=== PATIENT | male | born 2000 | race African-American/Black ===

== ENCOUNTER 2020-05-23 16:09 | Emergency (ER) | payer SELFPAY ==
[~2020-05-23] VITALS: Ht 180.3 cm; Wt 68.0 kg
[2020-05-23 16:47] VITALS: BP_SYST 120
[2020-05-23] MEDS ORDERED: AZITHROMYCIN 250 MG TABLET. PO ONE (17:15)
[2020-05-23] MEDS ORDERED: metroNIDAZOLE 500 MG TABLET PO ONE (17:15)
[2020-05-23] MEDS ORDERED: cefTRIAXone IM 250 MG VIAL IM ONE (17:15)
[2020-05-23 17:23] LABS: CLARITY,URINE HAZY; COLOR,URINE ORANGE
[2020-05-23 17:29] LABS: BACTERIA,URINE FEW /HPF (0-FEW); RBC,URINE OCC /HPF (0-2); WBC,URINE >40 /HPF (0-4)
--- NOTE | 2020-05-23 17:42 | PHYS DOC ---
Past Medical History Past Medical History: No Pertinent History Past Surgical History: No Surgical History Smoking Status: Never Smoker Alcohol Use: None General Adult EDM: Chief Complaint: SEXUALLY TRANSMITTED DISEASE HPI: HPI: Patient is a 19 year old male who presents with penile discharge for 3 days. Patient is concerned about STDs and would like to be tested and treated Review of Systems: Review of Systems: Constitutional: Denies fever or chills. [] GI: Denies abdominal pain, nausea, vomiting, bloody stools or diarrhea. [] : Reports penile discharge. Denies dysuria. [] Musculoskeletal: Denies back pain or joint pain. [] Integument: Denies rash. [] Neurologic: Denies headache, focal weakness or sensory changes. [] Psychiatric: Denies depression or anxiety. [] Heart Score: Risk Factors: Risk Factors: DM, Current or recent (<one month) smoker, HTN, HLP, family history of CAD, obesity. Risk Scores: Score 0 - 3: 2.5% MACE over next 6 weeks - Discharge Home Score 4 - 6: 20.3% MACE over next 6 weeks - Admit for Clinical Observation Score 7 - 10: 72.7% MACE over next 6 weeks - Early Invasive Strategies Current Medications: Current Medications Medications (Trade) Dose Ordered Sig/Antony Start Time Stop Time Status Last Admin Dose Admin Azithromycin (Zithromax) 1,000 mg 1X ONCE 05/23/20 17:15 05/23/20 17:23 DC Ceftriaxone Sodium (Rocephin Im) 250 mg 1X ONCE 05/23/20 17:15 05/23/20 17:23 DC Metronidazole (Flagyl) 2,000 mg 1X ONCE 05/23/20 17:15 05/23/20 17:23 DC Allergies: Allergies: Allergies Coded Allergies Type Severity Reaction Last Updated Verified No Known Drug Allergies 05/23/20 No Physical Exam: PE: Constitutional: Well developed, well nourished, no acute distress, non-toxic appearance. [] Abdomen: Bowel sounds normal, soft, no tenderness, no masses, no pulsatile masses. [] Skin: Warm, dry, no erythema, no rash. [] Back: No tenderness, no CVA tenderness. [] Extremities: No tenderness, no cyanosis, no clubbing, ROM intact, no edema. [] Neurologic: Alert and oriented X 3, normal motor function, normal sensory function, no focal deficits noted. [] Psychologic: Affect normal, judgement normal, mood normal. [] Current Patient Data: Labs: Laboratory Tests Test 05/23/20 17:04 Urine Collection Type Unknown Urine Color [place] Urine Clarity Hazy Urine pH (<5.0-8.0) Urine Specific [place] (1.000-1.030) Urine Protein mg/dL (NEG-TRACE) Urine Glucose (UA) mg/dL (NEG) Urine Ketones (Stick) mg/dL (NEG) Urine Blood (NEG) Urine Nitrite (NEG) Urine Bilirubin (NEG) Urine Urobilinogen Dipstick mg/dL (0.2 mg/dL) Urine Leukocyte Esterase (NEG) Urine RBC Occ /HPF (0-2) Urine WBC >40 /HPF (0-4) Urine Bacteria Few /HPF (0-FEW) Urine Mucus Mod /LPF Vital Signs: Vital Signs Date Time Temp Pulse Resp B/P (MAP) Pulse Ox O2 Delivery O2 Flow Rate FiO2 05/23/20 16:47 97.9 92 14 120/ 97 Room Air 97.9 EKG: EKG: [] Radiology/Procedures: Radiology/Procedures: [] Course & Med Decision Making: Course & Med Decision Making Pertinent Labs and Imaging studies reviewed. (See chart for details) This is a 19-year-old male patient presenting to the ED today with STD concern. Patient was tested and treated in the ED. Education provided. Brandon Disclaimer: Brandon Disclaimer: This electronic medical record was generated, in whole or in part, using a voice recognition dictation system. Departure Departure Impression: Primary Impression: Concern about STD in male without diagnosis Disposition: 01 HOME, SELF-CARE Condition: STABLE Patient Instructions: Sexually Transmitted Disease Additional Instructions: You were treated for sexually transmitted diseases. We will call you in 3 to 7 days if your results are positive. In the meantime do not have sex for a week. Use protection after that. Inform your partners you were treated for STDs and asked him to seek treatment too. Justicifation of Admission Dx: Justifications for Admission: Justification of Admission Dx: N/A ERROL AREVALO APRN May 23, 2020 17:42
== END 2020-05-23 18:10 | disposition home or self-care (01) ==
LOC: ER 16:09
DX: R36.9 Urethral discharge, unspecified (principal); Z20.2 Contact with and (suspected) exposure to infections with a predominantly sexual mode of transmission
CPT/HCPCS: 81001; 87491; 87591; 96372; 99283; J0696